=== PATIENT | female | born 1990 | race Two or more races ===

== ENCOUNTER 2018-08-11 08:47 | Emergency (ER) | payer MEDICAID ==
[2018-08-11] MEDS ORDERED: NS 1,000 ML IV ONE ×2 (09:06→10:10)
--- NOTE | 2018-08-11 09:29 | EDPHY ---
HPI/HX/ROS/PE/MDM Narrative: CLINICAL IMPRESSION: Nausea, vomiting, diarrhea ASSESSMENT/PLAN: 28-year-old homeless female with past medical history of depression, bipolar disease and schizophrenia who presents to the emergency department with nausea, vomiting and diarrhea since last night. Vital signs stable, afebrile. Abdomen soft, no focal peritoneal findings. She has a mild leukocytosis with no obvious signs of acute surgical abdomen, no reported UTI symptoms. No significant electrolyte imbalance, transaminitis or severe dehydration. She received 2 L of IV fluid and was able to tolerate juice without difficulty. Case Management met with the patient and was able to arrange taxi transport to [facility]. Encouraged primary care follow-up, Zofran prescribed to use if needed, brat diet reviewed, warning signs return to ED sooner alignment discharge. DIFFERENTIAL DX: Headache including but not limited to subarachnoid hemorrhage, migraine headache, tension headache and infectious causes such as meningitis, pharyngitis and sinusitis. Nausea and vomiting differential includes but not limited to viral gastroenteritis, dehydration, food poisoning, electrolyte imbalance. ED PROCEDURES: See lab results below ED COURSE: 10:11 a.m.: Patient reassessed, continues to sleep but arouses with verbal command. States that she still has a mild headache. Would like some Tylenol. Abdomen remains without focal peritoneal findings. Labs reviewed. Patient still feels like she cannot urinate and a 2nd L of fluid was ordered. On reassessment, patient was feeling improved, able to tolerate juice. Would like to go to a local [facility] CHIEF COMPLAINT: Nausea, vomiting, diarrhea and headache HPI: This is a 28-year-old homeless female with past medical history of depression, bipolar disease and schizophrenia, who presents to the emergency department with complaints of 24 hr of nausea vomiting and diarrhea. This morning she had a headache. Patient states she was up all night vomiting. No reported blood or bile in her vomit. She feels cold today but denies fevers. No new foods or ill contacts. She denies alcohol. She states her abdomen hurts"all over". She denies . She has no UTI symptoms or abnormal vaginal discharge. No URI symptoms. No bloody stools. [facility] PMH: Depression, schizophrenia, bipolar disease Pertinent Past Surgical History: None reported Family History: Noncontributory Social History: Homeless, staying [facility] the [facility] REVIEW OF SYSTEMS: All other systems negative Constitutional: No fever, Eyes: No discharge, vision change ENT: No sore throat, congestion, ear pain. Cardiovascular: No chest pain, no palpitations. Respiratory: No cough, no shortness of breath. Gastrointestinal: Positive for abdominal pain vomiting and diarrhea Genitourinary: No hematuria, dysuria, flank pain, pelvic pain Musculoskeletal: No back pain, joint swelling, joint pain, myalgias. Skin: No rashes, color change. Neurological: +headache, no dizziness, weakness. PHYSICAL EXAM: General Appearance: Alert, oriented, appropriate, cooperative, NAD, well hydrated, non-toxic appearing, VSS, no hypoxia, Laying under several blankets HEENT: Oropharynx clear is no erythema or exudates, no tonsillar hypertrophy or asymmetry. Dentition without abnormality. Eyes: PERRLA, no acute vision change, nystagmus, swelling, discharge, pain or photosensitivity. Conjunctiva pink, no pallor or injection Neck: Supple, nontender, no lymphadenopathy, no midline pain, FROM, no meningismus. Respiratory: There are no retractions, lungs are clear to auscultation. Cardiac: Regular rate and rhythm, no murmurs or gallops. Gastrointestinal: Abdomen is soft, generalized discomfort throughout bowel sounds normal, no masses/hernia, no rigidity, guarding or focal peritoneal findings. Neurological: Alert and oriented x 3, CN 2-12 grossly intact Skin: Warm, dry, no rashes, no nodules on palpation. Musculoskeletal: Extremities are symmetrical, full range of motion, no tenderness, deformity, swelling, or erythema. MEDICAL DECISION MAKING: Patient was seen independently. Secondary supervising physician at time of evaluation was Dr. Guzman. Diagnosis: Nausea, vomiting, diarrhea. New, requires workup Summary: See Assessment and Plan for summary of ED visit Clinical lab tests: ordered / reviewed. Patient Progress: Stable, improved. (Kuldeep Kramer) MDM: I did not see this patient while she was in the emergency department. However her care was discussed with the PA while the patient was in the department. I agree with treatment plan and management (Kin Guzman) - Data Points Laboratory Results: Laboratory Results 08/11/18 08:45 08/11/18 08:45 08/11/18 08/11/18 08/11/18 08:45 08:45 08:45 WBC 18.39 10^3/uL H 10^3/uL (3.80-9.50) RBC 5.25 10^6/uL 10^6/uL (4.18-5.33) Hgb 15.6 g/dL g/dL (12.6-16.3) Hct 46.9 % % (38.0-47.0) MCV 89.3 fL fL (81.5-99.8) MCH 29.7 pg pg (27.9-34.1) MCHC 33.3 g/dL g/dL (32.4-36.7) RDW 14.5 % % (11.5-15.2) Plt Count 248 10^3/uL 10^3/uL (150-400) MPV 12.2 fL H fL (8.7-11.7) Neut % (Auto) 87.2 % H % (39.3-74.2) Lymph % (Auto) 6.6 % L % (15.0-45.0) [place] % (Auto) 4.8 % % (4.5-13.0) Eos % (Auto) 0.8 % % (0.6-7.6) Baso % (Auto) 0.2 % L % (0.3-1.7) Nucleat RBC Rel Count 0.0 % % (0.0-0.2) Absolute Neuts (auto) 16.02 10^3/uL H 10^3/uL (1.70-6.50) Absolute Lymphs (auto) 1.22 10^3/uL 10^3/uL (1.00-3.00) Absolute Monos (auto) 0.89 10^3/uL H 10^3/uL (0.30-0.80) Absolute Eos (auto) 0.15 10^3/uL 10^3/uL (0.03-0.40) Absolute Basos (auto) 0.04 10^3/uL 10^3/uL (0.02-0.10) Absolute Nucleated RBC 0.00 10^3/uL 10^3/uL (0-0.01) Immature Gran % 0.4 % % (0.0-1.1) Immature Gran # 0.07 10^3/uL 10^3/uL (0.00-0.10) Sodium 141 mEq/L mEq/L (135-145) Potassium 4.3 mEq/L mEq/L (3.3-5.0) Chloride 104 mEq/L mEq/L (97-110) Carbon Dioxide 27 mEq/l mEq/l (22-31) Anion Gap 10 mEq/L mEq/L (6-14) BUN 13 mg/dL mg/dL (7-23) Creatinine 0.6 mg/dL mg/dL (0.6-1.0) Estimated GFR > 60 Glucose 105 mg/dL H mg/dL (70-100) Calcium 9.4 mg/dL mg/dL (8.5-10.4) Beta HCG, Qual NEGATIVE Medications Given: Discontinued Medications Acetaminophen (Tylenol) 1,000 mg PO EDNOW ONE Stop: 08/11/18 10:11 Last Admin: 08/11/18 10:55 Dose: 1,000 mg Sodium Chloride (Ns) 1,000 mls @ 0 mls/hr IV EDNOW ONE; Wide Open PRN Reason: Protocol Stop: 08/11/18 09:07 Last Admin: 08/11/18 09:19 Dose: 1,000 mls Sodium Chloride (Ns) 1,000 mls @ 0 mls/hr IV EDNOW ONE; Wide Open PRN Reason: Protocol Stop: 08/11/18 10:11 Last Admin: 08/11/18 10:55 Dose: 1,000 mls General Time Seen by Provider: 08/11/18 09:00 Initial Vital Signs: Initial Vital Signs Temperature (C) 36.6 C 08/11/18 08:50 Heart Rate 80 08/11/18 08:50 Respiratory Rate 16 08/11/18 08:50 Blood Pressure 127/85 H 08/11/18 08:50 O2 Sat (%) 96 08/11/18 08:50 O2 Delivery Mode Room Air Allergies/Adverse Reactions: No Known Allergies Allergy (Unverified 08/11/18 08:54) Home Medications: Medication Instructions Recorded Ondansetron Odt [Zofran Odt] 4 mg PO Q4PRN PRN #7 tab 08/11/18 Departure - Departure Disposition: Home, Routine, Self-Care Clinical Impression: Nausea vomiting and diarrhea Condition: Good Instructions: Acute Nausea and Vomiting (ED) Additional Instructions: DISCHARGE INSTRUCTIONS FROM YOUR DOCTOR Thank you for visiting our emergency department today. Please keep in mind that discharge from the emergency department does not mean that there is nothing wrong - it simply means that we have not identified an emergency condition that requires further evaluation or treatment in the hospital. You should always plan to follow up with primary care for re-evaluation of your condition in the next 2-3 days. If you have been referred to a specialist, please call as soon as possible (today or tomorrow) to schedule your follow up appointment at the appropriate time. You had no significant lab abnormalities today. You received 2 L of IV fluid and nausea medication. We recommend you see a primary care doctor in the next 24-48 hours to recheck. A prescription for nausea medication was provided. Please stick with a liquid only diet for the next 1-2 days. Return to the emergency department for persistent nausea vomiting or diarrhea, blood in your vomit or diarrhea, severe abdominal pain, development of fever or chills, or any other concern. People present with illnesses and injuries in different ways, and it is always possible that we have missed something. You may always return for re-evaluation if symptoms worsen or if they are not improving or if you develop new/different symptoms. Again, thank you for choosing our emergency department. We hope that you feel better. Referrals: NONE *PRIMARY CARE P,. [Primary Care Provider] - As per Instructions [facility],. [Clinic] - As per Instructions Prescriptions: Ondansetron Odt [Zofran Odt] 4 mg PO Q4PRN PRN #7 tab PRN Reason: Nausea/Vomiting, Can'T Take Po
[2018-08-11 09:33] LABS: PLATELET COUNT 248 10^3/uL (150-400)
[2018-08-11] MEDS ORDERED: ACETAMINOPHEN 500 MG TAB PO ONE (10:10)
[2018-08-11 12:16] VITALS: BP 124/91
--- NOTE | 2018-08-11 16:34 | ASMTCMCOM ---
CM Note CM Note Notes: Pt presented to the ED via EMS from outside of a [employer] for N/V. Pt is homeless and states she was sleeping in an elevator somewhere last night when a harbor police lieutenant picked her up and took her to the [facility]. PT states she has only been in [place] for one day. Pt states she is from [place] and states she would like to return there. This CM arranged for a Medicaid cab (Conf# [id number]) to transport pt to [facility] to [facility] [place] so she can complete [employer] Entry. Pt also provided various local homelessness resources including info on [facility] and their Walk-Up hours. CM available for further assistance if needed. Date Signed: 08/11/2018 04:33 PM Electronically Signed By:Tara Crocker RN
== END 2018-08-11 13:10 | disposition home or self-care (01) ==
DX: R11.2 Nausea with vomiting, unspecified (principal); R19.7 Diarrhea, unspecified; E86.9 Volume depletion, unspecified; F31.9 Bipolar disorder, unspecified; F20.9 Schizophrenia, unspecified; Z59.0 Homelessness